=== PATIENT | male | born 2000 | race Two or more races ===

== ENCOUNTER 2020-10-07 12:37 | Emergency (ER) | payer OTHER ==
[~2020-10-07] VITALS: Ht 182.9 cm; Wt 79.0 kg
[2020-10-07 13:03] VITALS: BP 124/81
[2020-10-07] MEDS ORDERED: ONDA4TAB6 PO (15:17)
--- NOTE | 2020-10-07 15:22 | NUR ---
PT SEEN AND DC'D BY PROVIDER
== END 2020-10-07 15:22 | disposition home or self-care (01) ==
LOC: ER 12:38
DX: U07.1 COVID-19 (principal)
CPT/HCPCS: 87635; 99283; C9803